=== PATIENT | male | born 1975 | race Caucasian/White ===

== ENCOUNTER → 2019-06-29 | Outpatient (CLI) | payer OTHER | END | disposition home or self-care (01) | LOC: PLD 07:44 → LAB SHORT 07:44 | DX: D22.5 Melanocytic nevi of trunk (principal) | CPT/HCPCS: 88305 ==

== ENCOUNTER 2023-04-27 07:37 | Day surgery (SDC) | payer OTHER ==
[~2023-04-27] VITALS: Ht 182.9 cm; Wt 108.2 kg
[2023-04-27 09:47] VITALS: BP 129/93
== END 2023-04-27 09:49 | disposition home or self-care (01) ==
LOC: ORSCSDS 07:37
PROVIDERS: Specialist
PROC: 0DB58ZX Excision of Esophagus, Via Natural or Artificial Opening Endoscopic, Diagnostic (ICD-10-PCS; principal; 2023-04-27 08:45)
PROC: 0DBK8ZX Excision of Ascending Colon, Via Natural or Artificial Opening Endoscopic, Diagnostic (ICD-10-PCS; principal; 2023-04-27 08:45)
DX: K21.9 Gastro-esophageal reflux disease without esophagitis (principal); D13.0 Benign neoplasm of esophagus; Z12.11 Encounter for screening for malignant neoplasm of colon; D12.0 Benign neoplasm of cecum; Z87.891 Personal history of nicotine dependence; E11.9 Type 2 diabetes mellitus without complications; E78.2 Mixed hyperlipidemia; Z79.899 Other long term (current) drug therapy
CPT/HCPCS: 88305; J2704; J7120